=== PATIENT | male | born 1970 | race Caucasian/White ===

== ENCOUNTER 2018-08-02 14:41 | Emergency (ER) | payer OTHER ==
[~2018-08-02] VITALS: Ht 170.2 cm; Wt 68.0 kg
[2018-08-02] MEDS ORDERED: ONDANSETRON HCL/PF 4 MG/2 ML VIAL ONE (14:58)
[2018-08-02] MEDS ORDERED: TDAP [DIPH/PERTUSSIS/TET] 0.5 ML VIAL IM ONE ×2 (14:58→15:00)
[2018-08-02] MEDS ORDERED: HYDROMORPHONE 1 MG/1 ML DISP.SYRIN ONE (14:58)
[2018-08-02] MEDS ORDERED: ONDANSETRON HCL/PF 4 MG/2 ML VIAL IVP ONE (15:00)
[2018-08-02] MEDS ORDERED: HYDROMORPHONE INJ 2 MG/ML DISP.SYRIN IV ONE (15:00)
[2018-08-02] MEDS ORDERED: IV NS 0.9% 1,000 ML BAG IV ONE (15:00)
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
--- NOTE | 2018-08-02 15:14 | NUR ---
PT UNABLE TO GIVE URINE SAMPLE AT THIS MOMENT, WILL TRY AFTER IV FLUIDS HAS BEEN INFUSED. URINAL WITHIN REACH.
[2018-08-02 15:16] LABS: BASOPHILS # (AUTO) 0.1 /CMM (0.0-0.2); BASOPHILS % (AUTO) 1.5 % (0.0-2.0); EOSINOPHILS % (AUTO) 0.5 % (0.0-6.0); HEMATOCRIT 41 % (39-51); HEMOGLOBIN 14.1 g/dL (13.5-17.5); LYMPHOCYTES # (AUTO) 1.3 /CMM (0.8-4.8); MEAN CORPUSCULAR HEMOGLOBIN 32 PG (26.0-33.0); MEAN CORPUSCULAR HGB CONC 34 g/dl (31.0-36.0); MEAN CORPUSCULAR VOLUME 96 fL (80-96); MONOCYTES # (AUTO) 0.3 /CMM (0.1-1.30); MONOCYTES % (AUTO) 4.4 % (2.0-12.0); NEUTROPHILS # (AUTO) 4.8 /CMM (1.8-8.9); NEUTROPHILS % (AUTO) 73.6 % (43.0-81.0); PLATELET COUNT (AUTO) 197 /CMM (150-450); RDW COEFFICIENT OF VARIATION 11.6 (11.5-15.0); RED BLOOD CELL COUNT(AUTO) 4.34 MIL/uL (4.5-6.0); WHITE BLOOD COUNT (AUTO) 6.5 K/uL (4.3-11.0)
[2018-08-02 15:17] LABS: CREATININE 1.2 mg/dL (0.6-1.3); POTASSIUM 3.6 mmol/L (3.5-5.1)
[2018-08-02 15:18] LABS: INR 0.89 (0.85-1.15)
[2018-08-02] MEDS ORDERED: IV NS 0.9% 250 ML IV ONE (15:25)
[2018-08-02] MEDS ORDERED: IOHEXOL-300 100 ML VIAL IV ONE (15:25)
--- NOTE | 2018-08-02 16:13 | NUR ---
PT STILL UNABLE TO GIVE URINE SAMPLE.
[2018-08-02 19:17] VITALS: BP 125/72
--- NOTE | 2018-08-02 19:18 | NUR ---
Patient discharged to home in stable condition. Written and verbal after care instructions given. Patient verbalizes understanding of instruction.IV removed. Catheter intact and site benign. Pressure and 4x4 applied to site. No bleeding noted.
== END 2018-08-02 19:19 | disposition home or self-care (01) ==
LOC: ER 14:43
DX: S06.0X9A Concussion with loss of consciousness of unspecified duration, initial encounter (principal); S22.31XA Fracture of one rib, right side, initial encounter for closed fracture; S01.21XA Laceration without foreign body of nose, initial encounter; S30.811A Abrasion of abdominal wall, initial encounter; S09.8XXA Other specified injuries of head, initial encounter; E78.00 Pure hypercholesterolemia, unspecified; I10 Essential (primary) hypertension; Z60.2 Problems related to living alone; Y04.8XXA Assault by other bodily force, initial encounter; Y93.89 Activity, other specified; Y92.89 Other specified places as the place of occurrence of the external cause; Y99.8 Other external cause status
CPT/HCPCS: 12011; 36415; 70450; 70486; 71260; 72125; 74177; 80048; 80305; 85025; 85730; 90471; 90715; 96374; 96375; 99285; A4606; A6402; G0480; J1170; J2405; J7030; J7050; L0172; Q9967; Z7610